=== PATIENT | male | born 1960 | race Caucasian/White ===

== ENCOUNTER 2016-09-18 15:08 | Emergency (ER) | payer BC ==
[~2016-09-18] VITALS: Ht 182.9 cm; Wt 133.9 kg
[~2016-09-18 15:08] MED LIST: ADVAIR 250/501 DISK IH; ANDROGEL TP; ANDROGEL1.25 GM TD; BUPROBAN150 MG PO; CELEXA40 MG PO; CITALOPRAM HBR40 MG PO; CLINDAMYCIN HC150 MG PO; CLOPIDOGREL75 MG PO; ENDOCET 5-3251 EACH PO; IRON325 MG PO; LOSARTAN POTASS25 MG PO; LOSARTAN POTASS50 MG PO; LOVENOX40 MG/0.4 SC; MECLIZINE HCL25 MG PO; NORCO 5/3251 TABLET PO; PLAVIX75 MG PO; TESTOSTERO200 MG/12 IM; ULTRAM ER100 MG PO
[2016-09-18 15:34] LABS: HEMATOCRIT 41.5 % (38.0-50.0); MCH 31.3 PG (29.0-34.0); MEAN PLAT.VOLUME 9.4 uM^3 (9.0-12.4); PLATELET COUNT 247 K/uL (156-360); RBC DIS.WIDTH-CV 13.2 % (11.8-14.6); RBC DIS.WIDTH-SD 44.1 % (39-53); RED BLOOD COUNT 4.51 M/uL (4.00-5.50); WHITE BLOOD COUNT 10.4 K/uL (4.1-10.2)
[2016-09-18 15:52] LABS: CHLORIDE 104 mEq/L (99-109); POTASSIUM 4.4 mEq/L (3.7-5.4); SODIUM 141 mEq/L (136-147)
[2016-09-18 15:54] LABS: GLUCOSE 87 mg/dL (70-99); TROP-I INTERPRETATION NEGATIVE; TROPONIN-I < 0.01 ng/mL (0.0-0.30)
[2016-09-18 15:56] LABS: ANION GAP 9 MEQ/L (2-14)
[2016-09-18 15:58] LABS: GFR ESTIMATE (CALCULATED) > 59 mL/min/
[2016-09-18 15:59] LABS: UREA NITROGEN (BUN) 12 mg/dL (9-23)
[2016-09-18 17:41] LABS: D-DIMER ELISA 0.76 mg/L FEU (< 0.57)
[2016-09-18 18:46] LABS: TROP-I INTERPRETATION NEGATIVE; TROPONIN-I < 0.01 ng/mL (0.0-0.30)
[2016-09-18] MEDS ORDERED: AZITHROMYCIN250 MG1 PO (19:57)
[2016-09-18 20:48] VITALS: BP 142/84
== END 2016-09-18 20:44 | disposition home or self-care (01) ==
LOC: EME 15:08
PROVIDERS: Emergency Medicine
DX: J18.9 Pneumonia, unspecified organism (principal); T38.0X5A Adverse effect of glucocorticoids and synthetic analogues, initial encounter; D72.829 Elevated white blood cell count, unspecified; J45.909 Unspecified asthma, uncomplicated; I10 Essential (primary) hypertension; Z86.73 Personal history of transient ischemic attack (TIA), and cerebral infarction without residual deficits; Z88.6 Allergy status to analgesic agent; Z88.0 Allergy status to penicillin
CPT/HCPCS: 71020; 71275; 80048; 83880; 84443; 84484; 85027; 85379; 93005; 99281; 99285

== ENCOUNTER 2017-03-15 01:14 | Emergency (ER) | payer BC ==
[~2017-03-15] VITALS: Ht 182.9 cm; Wt 120.0 kg
[~2017-03-15 01:14] MED LIST changes: +AZITHROMYCIN250 MG1 PO
[2017-03-15 01:48] LABS: EOSINOPHIL (%) 0.1 % (0-5); HEMATOCRIT 36.8 % (38.0-50.0); IMMATURE GRANULOCYTE (%) 0.7 % (0.0-0.7); IMMATURE GRANULOCYTE COUNT 0.1 K/uL; INSTRUMENT ABS NEUTROPHIL CT 11.2 K/uL; LYMPHOCYTE COUNT 1.5 K/uL (1.0-2.8); MCH 30.7 PG (29.0-34.0); MCHC 34.2 G/DL (30.0-36.0); MCV 89.5 FL (86-99); MEAN PLAT.VOLUME 9.3 uM^3 (9.0-12.4); MONOCYTE (%) 6.8 % (3-12); MONOCYTE COUNT 0.9 K/uL (0-0.8); NEUTROPHIL (%) 81.2 % (45-76); NEUTROPHIL COUNT 11.2 K/uL (1.8-6.4); PLATELET COUNT 282 K/uL (156-360); RBC DIS.WIDTH-CV 12.3 % (11.8-14.6); RBC DIS.WIDTH-SD 40.4 % (39-53); RED BLOOD COUNT 4.11 M/uL (4.00-5.50); WHITE BLOOD COUNT 13.7 K/uL (4.1-10.2)
[2017-03-15 02:00] LABS: INTER. NORMALIZED RATIO 1.2; PROTHROMBIN TIME 13.2 SEC (10.2-12.9)
[2017-03-15 02:03] LABS: PTT 26.2 SEC (25-37)
[2017-03-15 02:10] LABS: TROP-I INTERPRETATION NEGATIVE; TROPONIN-I 0.01 ng/mL (0.0-0.30)
[2017-03-15 02:22] LABS: CHLORIDE 100 mEq/L (99-109); POTASSIUM 3.5 mEq/L (3.7-5.4); SODIUM 137 mEq/L (136-147)
[2017-03-15 02:24] LABS: GLUCOSE 105 mg/dL (70-99)
[2017-03-15 02:25] LABS: ANION GAP 12 MEQ/L (2-14)
[2017-03-15 02:28] LABS: GFR ESTIMATE (CALCULATED) > 59 mL/min/; UREA NITROGEN (BUN) 21 mg/dL (9-23)
[2017-03-15] MEDS ORDERED: LEVAQUIN750 MG PO (03:49)
[2017-03-15 04:15] LABS: TROP-I INTERPRETATION NEGATIVE; TROPONIN-I < 0.01 ng/mL (0.0-0.30)
[2017-03-15 04:16] LABS: INFLUENZA A VIRAL ANTIGEN NEGATIVE; INFLUENZA B VIRAL ANTIGEN NEGATIVE
[2017-03-15 06:22] VITALS: BP 114/63
== END 2017-03-15 06:23 | disposition home or self-care (01) ==
LOC: EME 01:14
PROVIDERS: Emergency Medicine
DX: J18.9 Pneumonia, unspecified organism (principal); J45.909 Unspecified asthma, uncomplicated; K21.9 Gastro-esophageal reflux disease without esophagitis; I10 Essential (primary) hypertension; Z86.73 Personal history of transient ischemic attack (TIA), and cerebral infarction without residual deficits
CPT/HCPCS: 71020; 71275; 80048; 81003; 83605; 83735; 84484; 85025; 85610; 85730; 87040; 87502; 93005; 99281; 99285; J1956; J7030